=== PATIENT | female | born 1990 | race Caucasian/White ===

== ENCOUNTER 2023-05-09 08:00 | Outpatient (CLI) | payer OTHER ==
[2023-05-09 18:19] LABS: BILIRUBIN,URINE NEGATIVE (NEGATIVE); GLUCOSE, URINE (UA) NEGATIVE (NEGATIVE); KETONES,URINE (UA) NEGATIVE (NEGATIVE); LEUKOCYTE ESTERASE, URINE NEGATIVE (NEGATIVE); NITRITE,URINE NEGATIVE (NEGATIVE); OCCULT BLOOD,URINE NEGATIVE (NEGATIVE); PH,URINE 6.5 PH (5.0-7.5); PROTEIN,URINE NEGATIVE (NEGATIVE); UROBILINOGEN,URINE 0.2 (NORMAL) E.U./dL (NORMAL)
[2023-05-09 18:27] LABS: CLARITY,URINE CLEAR (CLEAR)
[2023-05-09 18:55] LABS: RBC,URINE 0-5 /HPF (0-5); SQUAMOUS EPITHELIAL CELL,UR FEW Squamous (<= Few); WBC,URINE 0-3 /HPF (0-5)
[2023-05-09 18:56] LABS: BACTERIA,URINE Few /HPF (None Seen)
== END 2023-05-09 23:59 | disposition home or self-care (01) ==
LOC: LAB.N 08:00
PROVIDERS: ATTEND Physician Assistant Medical
DX: R31.9 Hematuria, unspecified (principal)
CPT/HCPCS: 81001; 87086

== ENCOUNTER 2023-07-02 11:45 | Outpatient (CLI) | payer OTHER ==
--- NOTE | 2023-07-02 15:26 | XRAY Report ---
PROCEDURE: Chest 2V INDICATIONS: CHRONIC COUGH TECHNIQUE: 2 views of the chest were acquired. COMPARISON: None. FINDINGS: Surgical changes and devices: None. Lungs and pleura: No pleural effusions or pneumothorax. Lungs are clear. Mediastinum: Mediastinal contours appear normal. Heart size is normal. Bones and chest wall: No suspicious bony lesions. Overlying soft tissues appear unremarkable. IMPRESSION: No acute cardiopulmonary process. Reviewed by: Cecily Jiménez MD on 07/02/2023 3:24 PM PST Approved by: Cecily Jiménez MD on 07/02/2023 3:24 PM PST Station ID: [id number]
== END 2023-07-02 12:00 | disposition home or self-care (01) ==
LOC: DI.N 11:45
PROVIDERS: ATTEND Family Medicine
DX: R05.3 Chronic cough (principal)

== ENCOUNTER 2023-07-08 15:16 | Outpatient (CLI) | payer OTHER | END 2023-07-08 15:17 | disposition EMS.NT | LOC: EMS 15:16 | DX: Z04.1 Encounter for examination and observation following transport accident (principal); R41.0 Disorientation, unspecified ==

== ENCOUNTER 2023-07-08 16:50 | Outpatient (CLI) | payer OTHER | END 2023-07-08 16:51 | disposition critical access hospital (66) | LOC: EMS 16:50 | DX: R41.0 Disorientation, unspecified (principal); R53.83 Other fatigue; R52 Pain, unspecified | CPT/HCPCS: A0425; A0429 ==

== ENCOUNTER 2023-07-08 17:06 | Emergency (ER) | payer OTHER ==
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
[2023-07-08 17:27] LABS: BASOPHILS # (AUTO) 0.1 10^3/uL (0.0-0.1); BASOPHILS % (AUTO) 0.4 %; EOSINOPHILS % (AUTO) 0.3 %; HCT - HEMATOCRIT 41.3 % (37.0-47.0); HGB - HEMOGLOBIN 14.3 g/dL (12.0-16.0); LYMPHOCYTES # (AUTO) 1.6 10^3/uL (1.5-3.5); MEAN CORPUSCULAR HEMOGLOBIN 38.5 pg (27.0-31.0); MEAN CORPUSCULAR HGB CONC 34.6 g/dL (32.0-36.0); MEAN CORPUSCULAR VOLUME 111.3 fL (81.0-99.0); MONOCYTES # (AUTO) 1.2 10^3/uL (0.0-1.0); MONOCYTES % (AUTO) 9.1 %; NEUTROPHILS # (AUTO) 9.7 10^3/uL (1.5-6.6); NEUTROPHILS % (AUTO) 76.6 %; PLT - PLATELET COUNT 405 10^3/uL (130-450); RED BLOOD COUNT 3.71 10^6/uL (4.20-5.40); RED CELL DISTRIBUTION WIDTH 12.6 % (12.0-15.0); WHITE BLOOD COUNT 12.6 x10^3/uL (4.8-10.8)
[2023-07-08 17:29] LABS: SLIDE REVIEW? Indicated
[2023-07-08 17:46] LABS: ALBUMIN 4.1 g/dL (3.2-5.5); ALBUMIN/GLOBULIN RATIO 1.7 (1.0-2.2); ALKALINE PHOSPHATASE 54 IU/L (42-121); ALT ALANINE AMINOTRANSFERASE 26 IU/L (10-60); AST ASPARTATE AMINOTRANSFERASE 18 IU/L (10-42); BILIRUBIN,TOTAL 0.4 mg/dL (0.2-1.0); BUN - BLOOD UREA NITROGEN 11 mg/dL (6-20); CALCIUM 8.9 mg/dL (8.5-10.3); CARBON DIOXIDE - CO2 27 mmol/L (21-32); CHLORIDE 101 mmol/L (101-111); CREATININE 0.7 mg/dL (0.6-1.3); ETOH - ETHANOL < 10.0 mg/dL; GFR - MDRD 95 (>89); GLUCOSE 109 mg/dL (74-104); MAGNESIUM 1.7 mg/dL (1.7-2.3); PLATELET ESTIMATE, MANUAL NORMAL (130-450,000) (NORMAL); PLATELET MORPHOLOGY NORMAL APPEARANCE (NORMAL); POTASSIUM 3.3 mmol/L (3.5-4.5); RBC MORPHOLOGY (MULTIPLE) 3+ MACROCYTOSIS (NORMAL); SODIUM 137 mmol/L (135-145); TOTAL PROTEIN 6.5 g/dL (6.4-8.9)
--- NOTE | 2023-07-08 17:53 | CT Report ---
PROCEDURE: CT brain without contrast INDICATIONS: seizure TECHNIQUE: Helical axial CT of the brain was obtained without contrast and reformatted in multiple p lanes. Radiation dose reduction was achieved using automated exposure control or adjustment of mA and /or kV according to patient size. COMPARISON: None FINDINGS: CSF spaces: Ventricles are appropriate in size and position. No hydrocephalus. Basal cisterns unre markable. Brain: No midline shift. No intracranial masses or hemorrhage. [place]-white matter interface is norm al. Skull and face: Calvarium and skull base are unremarkable without suspicious lesion. Sinuses: Visualized sinuses and mastoids are clear. IMPRESSION: Unremarkable CT of the brain Reviewed by: Bakari Clemente MD on 07/08/2023 4:52 PM [facility] Approved by: Bakari Clemente MD on 07/08/2023 4:52 PM [facility] Station ID: [id number]
[2023-07-08 18:08] LABS: BILIRUBIN,URINE NEGATIVE (NEGATIVE); GLUCOSE, URINE (UA) NEGATIVE (NEGATIVE); KETONES,URINE (UA) NEGATIVE (NEGATIVE); LEUKOCYTE ESTERASE, URINE NEGATIVE (NEGATIVE); NITRITE,URINE NEGATIVE (NEGATIVE); OCCULT BLOOD,URINE NEGATIVE (NEGATIVE); PROTEIN,URINE TRACE mg/dL (NEGATIVE); UROBILINOGEN,URINE 0.2 (NORMAL) E.U./dL (NORMAL)
[2023-07-08 18:10] LABS: CLARITY,URINE HAZY (CLEAR); HCG UR QUAL NEGATIVE
[2023-07-08 18:17] LABS: BACTERIA,URINE Many /HPF (None Seen); MUCUS,URINE Moderate Strands; RBC,URINE 0-5 /HPF (0-5); SQUAMOUS EPITHELIAL CELL,UR MANY Squamous (<= Few); WBC,URINE 0-3 /HPF (0-5)
[2023-07-08 18:19] LABS: AMPHETAMINE SCREEN,URINE NEGATIVE (NEGATIVE); BARBITURATE SCREEN,UR NEGATIVE (NEGATIVE); BENZODIAZEPINES SCREEN, URINE POSITIVE (NEGATIVE); BUPRENORPHINE SCREEN, URINE NEGATIVE (NEGATIVE); COCAINE SCREEN URINE NEGATIVE (NEGATIVE); METHADONE SCREEN, URINE NEGATIVE (NEGATIVE); METHAMPHETAMINES SCREEN, URINE NEGATIVE (NEGATIVE); OPIATE SCREEN, URINE NEGATIVE (NEGATIVE); OXYCODONE SCREEN, URINE NEGATIVE (NEGATIVE); THC CANNABINOID SCREEN, URINE NEGATIVE (NEGATIVE); TRICYCLIC ANTIDEPRESSANT,URINE NEGATIVE (NEGATIVE)
[2023-07-08 18:34] VITALS: BP 128/88; O2SAT 100
== END 2023-07-08 18:32 | disposition home or self-care (01) ==
LOC: EDUNIT# → ED 17:06
DX: R41.82 Altered mental status, unspecified (principal); V49.9XXA Car occupant (driver) (passenger) injured in unspecified traffic accident, initial encounter; Y92.410 Unspecified street and highway as the place of occurrence of the external cause; F41.9 Anxiety disorder, unspecified; Z79.899 Other long term (current) drug therapy
CPT/HCPCS: 36415; 80053; 80306; 80320; 81001; 81003; 81025; 83735; 84146; 85025; 87086; 93005; 99284